=== PATIENT | male | born 2000 | race Caucasian/White ===

== ENCOUNTER → 2020-03-17 | Outpatient (CLI) | payer BC ==
[~2020-03-17] MED LIST: KEFLEX500 MG PO; MOTRIN600 MG PO; NKHM; ZITHROMAX Z PA250 MG PO
[2020-03-19 05:04] LABS: HEPATITIS B SURFACE AG Negative (Negative)
[2020-03-19 17:07] LABS: MUMPS ANTIBODIES, IGG 19.8 AU/mL (Immune >10.9); RUBEOLA AB IGG <13.5 AU/mL (Immune >16.4); VARICELLA-ZOSTER IGG <135 index (Immune >165)
== END | disposition home or self-care (01) ==
LOC: LAB 11:55
PROVIDERS: Family Medicine
DX: B02.1 Zoster meningitis (principal)

== ENCOUNTER → 2022-07-11 | Outpatient (CLI) | payer BC | END | disposition home or self-care (01) | LOC: CT 11:00 | PROVIDERS: ATTEND Family Medicine | DX: R10.9 Unspecified abdominal pain (principal) ==

== ENCOUNTER 2024-02-14 18:29 | Emergency (ER) | payer BC ==
[~2024-02-14] VITALS: Ht 185.4 cm; Wt 86.2 kg
[2024-02-14] MEDS ORDERED: Bacitracin Zinc 14 GM TUBE T ONE (19:55)
[2024-02-14] MEDS ORDERED: Tdap Vaccine 0.5 ML SYR (Adult Vaccine) IM ONE (20:05)
== END 2024-02-14 20:16 | disposition home or self-care (01) ==
LOC: ED 18:29
DX: S61.211A Laceration without foreign body of left index finger without damage to nail, initial encounter (principal); W26.0XXA Contact with knife, initial encounter; Y93.89 Activity, other specified; Y92.89 Other specified places as the place of occurrence of the external cause; Y99.8 Other external cause status